=== PATIENT | male | born 1970 | race Caucasian/White ===

== ENCOUNTER 2018-02-08 22:58 | Emergency (ER) | payer OTHER ==
[2018-02-08 23:08] VITALS: BP 118/97; PULSE 91; TEMP 97; BMI 25.0
== END 2018-02-08 23:30 | disposition left against medical advice (07) ==
LOC: JER 22:58
DX: Z53.21 Procedure and treatment not carried out due to patient leaving prior to being seen by health care provider (principal)
CPT/HCPCS: 99281-25